=== PATIENT | female | born 1955 | race Two or more races ===

== ENCOUNTER 2018-05-21 09:38 | Outpatient (CLI) | payer OTHER | END 2018-05-21 09:41 | disposition home or self-care (01) | LOC: LAB 09:38 | DX: C50.911 Malignant neoplasm of unspecified site of right female breast (principal) ==

== ENCOUNTER → 2018-06-01 | Day surgery (SDC) | payer OTHER | END | disposition home or self-care (01) | LOC: CIR.AMB 06:40 | DX: C50.911 Malignant neoplasm of unspecified site of right female breast (principal); N62 Hypertrophy of breast ==